=== PATIENT | male | born 1960 | race Caucasian/White ===

== ENCOUNTER 2023-08-22 15:41 | Inpatient (IN) | payer MEDICARE ==
[~2023-08-22] VITALS: Ht 180.3 cm; Wt 59.0 kg
[2023-08-22] MEDS: SODIUM CHLORIDE 0.9% 1,000 ML IV ONE (16:42)
[2023-08-22 16:44] LABS: BASOPHILS % 0.7 % (0.0-2.0); EOSINOPHILS % 7.3 % (0.0-5.0); HEMOGLOBIN. 11.3 g/dL (14.0-18.0); LYMPHOCYTES % 28.9 % (20.0-50.0); MEAN CORPUSCULAR HEMOGLOBIN 30.8 pg (28.0-32.0); MEAN CORPUSCULAR HGB CONC 34.2 g/dL (31.0-37.0); MEAN CORPUSCULAR VOLUME 90.2 fL (80.0-94.0); MEAN PLATELET VOLUME 7.4 fl (7.4-10.4); MONOCYTES % 8.5 % (2.0-8.0); NEUTROPHILS % 54.6 % (40.0-76.0); PLATELET 308 x1000/uL (130-400); RED BLOOD CELL COUNT 3.66 mill/uL (4.7-6.1); RED CELL DISTRIBUTION WIDTH 13.7 % (11.6-14.6)
[2023-08-22 16:54] LABS: ALANINE AMINOTRANSFERASE 16 IU/L (10-49); ALBUMIN 3.3 g/dL (3.2-4.8); ASPARTATE AMINOTRANSFERASE 15 IU/L (<34); BILIRUBIN TOTAL 0.4 mg/dL (0.1-1.0); CALCIUM 8.4 mg/dL (8.7-10.4); CARBON DIOXIDE 29 mEq/L (21-32); CHLORIDE 101 mEq/L (98-107); CREATININE 1.9 mg/dL (0.6-1.3); POTASSIUM 5.5 mEq/L (3.5-5.1); PROTEIN TOTAL 5.8 g/dL (6.0-8.3); SODIUM 134 mEq/L (136-145); UREA NITROGEN BLOOD 35 mg/dL (9-23)
[2023-08-22 17:04] LABS: ETHANOL BLOOD < 10 mg/dL (<10); GLUCOSE 413 mg/dL (70-105); TROPONIN I HIGH SENSITIVITY < 4 ng/L (3.0-53)
[2023-08-22] MEDS: CLOPIDOGREL 75MG TABLET PO ONE (17:14)
[2023-08-22] MEDS ORDERED: CALCIUM GLUCONATE 1,000 MG in DEXT 5% WATER 100 ML IV ONE (17:15)
[2023-08-22 17:20] LABS: BETA HYDROXYBUTYRATE 0.1 mMol/L (0.0-0.3)
[2023-08-22 17:25] LABS: PROTHROMBIN TIME 10.3 sec (9.6-11.0)
[2023-08-22] MEDS ORDERED: ALBUTEROL (0.083%) 2.5MG/3ML NEB HHN SCH (17:30)
[2023-08-22] MEDS: CALCIUM GLUCONATE 1GM PREMIX 50 ML IV NR (17:51)
[2023-08-22] MEDS: INSULIN REGULAR (HUMULIN R) 300UNITS/3ML VIAL IV NR (18:09)
[2023-08-22] MEDS: DEXTROSE 50% WATER 50ML SYRINGE IV NR (18:09)
[2023-08-22] MEDS: SODIUM BICARBONATE 8.4% 1 MEQ/ML 50ML SYR IV NR (18:12)
[2023-08-22] MEDS: FUROSEMIDE 40MG/4ML VIAL IV NR (18:14)
[2023-08-22] MEDS: INSULIN REGULAR (HUMULIN R) 300UNITS/3ML VIAL SUBCUT NR (20:27)
[2023-08-22 21:15] LABS: CALCIUM 9.4 mg/dL (8.7-10.4); CREATININE 2.1 mg/dL (0.6-1.3); POTASSIUM 4.2 mEq/L (3.5-5.1)
[2023-08-22 22:00] VITALS: BP 127/76; PULSE 72; RESP 20; TEMP 97.9
[2023-08-23] MEDS ORDERED: DEXTROSE 50% WATER 50ML SYRINGE IV PRN (00:15)
[2023-08-23 01:42] VITALS: BP 130/81; PULSE 72; RESP 20; TEMP 97.9
[2023-08-23] MEDS ORDERED: METF-416 PO (05:24)
[2023-08-23] MEDS ORDERED: AMLO10TA80 PO (05:26)
[2023-08-23] MEDS: PANTOPRAZOLE 40MG DR TABLET PO SCH (06:40)
[2023-08-23] MEDS: BLOOD SUGAR DIAGNOSTIC STRIP TEST SCH (06:40)
[2023-08-23] MEDS: INSULIN LISPRO 100 UNITS/ML SUBCUT SCH (06:56)
[2023-08-23 07:55] LABS: BASOPHILS % 1.1 % (0.0-2.0); EOSINOPHILS % 8.5 % (0.0-5.0); HEMATOCRIT. 36.2 % (42.0-52.0); HEMOGLOBIN. 12.5 g/dL (14.0-18.0); LYMPHOCYTES % 28.3 % (20.0-50.0); MEAN CORPUSCULAR HEMOGLOBIN 30.4 pg (28.0-32.0); MEAN CORPUSCULAR HGB CONC 34.7 g/dL (31.0-37.0); MEAN CORPUSCULAR VOLUME 87.7 fL (80.0-94.0); MEAN PLATELET VOLUME 7.4 fl (7.4-10.4); MONOCYTES % 6.5 % (2.0-8.0); NEUTROPHILS % 55.6 % (40.0-76.0); PLATELET 335 x1000/uL (130-400); RED BLOOD CELL COUNT 4.12 mill/uL (4.7-6.1); WHITE BLOOD COUNT 6.5 x1000/uL (4.5-11.0)
[2023-08-23 08:00] VITALS: BP 135/72; PULSE 78; RESP 12; TEMP 97.8
[2023-08-23 08:27] LABS: CALCIUM 9.2 mg/dL (8.7-10.4); CREATININE 1.8 mg/dL (0.6-1.3); POTASSIUM 3.9 mEq/L (3.5-5.1)
[2023-08-23] MEDS: ASPIRIN 81MG TABLET PO SCH (08:58)
[2023-08-23] MEDS: CLOPIDOGREL 75MG TABLET PO SCH (09:00)
[2023-08-23] MEDS: ENOXAPARIN 30MG/0.3ML SYR SUBCUT SCH (09:00)
[2023-08-23 12:00] VITALS: BP 135/78; PULSE 80; RESP 14; TEMP 98
[2023-08-23 16:00] VITALS: BP 120/72; PULSE 80; RESP 16; TEMP 97.9
[2023-08-23 20:00] VITALS: BP 128/58; PULSE 82; RESP 16; TEMP 98.1
[2023-08-23] MEDS: ATORVASTATIN CALCIUM 20MG TABLET PO SCH (21:48)
[2023-08-24] VITALS: BP 126/58; PULSE 86; RESP 18; TEMP 98.2
[2023-08-24 04:00] VITALS: BP 135/62; PULSE 81; RESP 17; TEMP 98
[2023-08-24 08:00] VITALS: BP 125/71; PULSE 73; RESP 18; TEMP 97.7
[2023-08-24 12:00] VITALS: BP 132/75; PULSE 71; RESP 18; TEMP 98.1
[2023-08-24 16:00] VITALS: BP 127/68; PULSE 65; RESP 18; TEMP 97.9
[2023-08-24 20:00] VITALS: BP 121/71; PULSE 74; RESP 16; TEMP 97.7
[2023-08-25] VITALS: BP 123/72; PULSE 63; RESP 16; TEMP 97.8
[2023-08-25 04:00] VITALS: BP 134/74; PULSE 65; RESP 18; TEMP 97.1
[2023-08-25 08:00] VITALS: BP 112/73; PULSE 63; RESP 18; TEMP 98.1
[2023-08-25] MEDS: FAMOTIDINE 20MG TABLET PO SCH (08:27)
[2023-08-25] MEDS ORDERED: INSU100I28 SQ (10:49)
[2023-08-25] MEDS ORDERED: ATOR20TA65 PO (10:49)
[2023-08-25] MEDS ORDERED: GLIP10TA10 PO (10:49)
[2023-08-25 12:00] VITALS: BP 126/68; PULSE 68; RESP 18; TEMP 97.5
[2023-08-25 16:38] VITALS: BP 126/69; PULSE 68; TEMP 97.5; O2SAT 100
[2023-08-25] MEDS ORDERED: CLOP-31 PO (17:16)
[2023-08-25] MEDS ORDERED: ASPI-1160 PO (17:16)
[2023-08-25] MEDS ORDERED: ATOR20TA PO (17:16)
[2023-08-26] MEDS ORDERED: IOHEXOL-350 100 ML BOTTLE ONE (12:18)
== END 2023-08-25 17:55 | disposition home or self-care (01) | DRG 65 ==
LOC: ER 15:41 → 8WST 18:33
PROVIDERS: ADMIT Internal Medicine; ATTEND Internal Medicine
DX: I63.9 Cerebral infarction, unspecified (principal); N17.9 Acute kidney failure, unspecified; E11.65 Type 2 diabetes mellitus with hyperglycemia; R29.704 NIHSS score 4; I12.9 Hypertensive chronic kidney disease with stage 1 through stage 4 chronic kidney disease, or unspecified chronic kidney disease; E11.22 Type 2 diabetes mellitus with diabetic chronic kidney disease; N18.9 Chronic kidney disease, unspecified; Z79.4 Long term (current) use of insulin
CPT/HCPCS: 36415; 70496; 70498; 70551; 71045; 80048; 80053; 80061; 80320; 82010; 82962; 83036; 84484; 85025; 93005; 97165; 99291; J0610; J1650; J1815; J1940; J3490; J7030; Q9967; G0480